=== PATIENT | female | born 1970 | race Caucasian/White ===

== ENCOUNTER 2017-08-26 20:43 | Emergency (ER) | payer MEDICAID ==
[~2017-08-26] VITALS: Ht 160 cm; Wt 132.5 kg
[2017-08-26 20:50] VITALS: BP 135/90
--- NOTE | 2017-08-26 20:53 | NUR ---
TO LOBBY A/W AMBULATORY, MIN RIDDLE NOTED
--- NOTE | 2017-08-26 21:00 | NUR ---
PATIENT AMBULATED TO ER BED 9.
[2017-08-26 21:05] VITALS: BP 135/90
--- NOTE | 2017-08-26 21:05 | NUR ---
PATIENT IS A 47 Y/O FEMALE WHO PRESENTS TO THE ED C/O ANXIETY. PT STATES THAT SHE GETS ANXIETY AROUND TIME IS ON HER PERIOD SHE IS CURRENTLY ON. PT REPORTS 5/10 ACHING BILATERAL EAR PAIN THAT DOES NOT RADIATE. PT DENIES CP, SOB, N/V/D. PT AWAKE AND ALERT, RR EVEN/UNLABORED. PT REPOSITIONED FOR COMFORT, BED IN LOWEST POSITION. ER MD DR. CONNOR NOTIFIED. WILL CONTINUE TO MONITOR.
[2017-08-26] MEDS ORDERED: methylPREDNISolone SS 125 MG/2 ML VIAL IM ONE (22:10)
[2017-08-26] MEDS ORDERED: LORazepam 2 MG/ML VIAL IM ONE (22:10)
[2017-08-26] MEDS ORDERED: diphenhydrAMINE 50 MG/ML VIAL IM ONE (22:10)
--- NOTE | 2017-08-26 22:49 | NUR ---
Patient discharged with v/s stable. Written and verbal after care instructions given and explained. Patient alert, oriented and verbalized understanding of instructions. Ambulatory with steady gait. All questions addressed prior to discharge. ID band removed. Patient advised to follow up with PMD. Rx of MELOXICAM AND XANAX given. Patient educated on indication of medication including possible reaction and side effects. Opportunity to ask questions provided and answered.
== END 2017-08-26 22:49 | disposition home or self-care (01) ==
LOC: MED 20:43
DX: F41.9 Anxiety disorder, unspecified (principal); G47.00 Insomnia, unspecified
CPT/HCPCS: 96372; 99284; J1200; J2060; J2930

== ENCOUNTER 2017-09-29 21:14 | Emergency (ER) | payer MEDICAID ==
[~2017-09-29] VITALS: Ht 157.5 cm; Wt 104.3 kg
--- NOTE | 2017-09-29 21:14 | NUR ---
Patient BIB [place] [employer], transferred to bed 2 via wheelchair. RN evaluating patient at bedside.
[2017-09-29 21:23] VITALS: BP 123/50
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
--- NOTE | 2017-09-29 22:15 | NUR ---
PT SPO2 DROPS TO 85% ON ROOM AIR WHEN SLEEPING, POSSIBLE SLEEP APNEA. PT AROUSABLE TO NAME, PT PLACED ON O2 2L NC, SPO2 95%, RR 28 EVEN AND TACHYPNIC. ALL NEEDS MET.
--- NOTE | 2017-09-29 22:41 | NUR ---
Dr. Peters evaluating patient at bedside.
[2017-09-29] MEDS ORDERED: ALBUTEROL SULFATE/IPRATROPIU 3 ML SOL IH ONE (22:45)
--- NOTE | 2017-09-29 22:52 | NUR ---
RT AT BEDSIDE FOR BREATHING TX
[2017-09-29 23:23] LABS: BARBITURATE, URINE NEG. ng/ml (NEG <=200); BENZODIAZEPINE, URINE NEG. ng/mL (NEG <=200); CANNABINOID, URINE NEG. ng/mL (NEG <=50); COCAINE, URINE NEG. ng/mL (NEG <=300); OPIATE, URINE NEG. ng/mL (NEG <=2000); PHENCYCLIDINE SCREEN,URINE NEG. ng/mL (NEG <=25)
[2017-09-29 23:58] VITALS: BP 135/68
--- NOTE | 2017-09-29 23:59 | NUR ---
Patient discharged with v/s stable. Written and verbal after care instructions given and explained. Patient verbalized understanding. Ambulatory with steady gait. All questions addressed prior to discharge. Advised to follow up with PMD. Pt accompanied by Christina HEATH.
== END 2017-09-29 23:59 ==
LOC: MED 21:14
DX: Z02.89 Encounter for other administrative examinations (principal); R06.00 Dyspnea, unspecified
CPT/HCPCS: 71045; 80305; 81002; 81025; 94640; 99285; J7620; Q0092